=== PATIENT | female | born 1960 | race Caucasian/White ===

== ENCOUNTER → 2021-02-22 | Day surgery (SDC) | payer MEDICARE, MEDICAID ==
[~2021-02-22] MED LIST: BUPIVACAINE MPF 0.25% 10 ML VIAL. ONE; DEXAMETHASONE SOD PHOS 10 MG/ML VIAL. ONE; IOHEXOL 300 MG/ML 50 ML VIAL. ONE; LIDOCAINE 1% PF 30 ML VIAL. ONE
[2021-02-22 13:08] VITALS: BP 122/79
== END | disposition home or self-care (01) ==
LOC: SURG 11:37
PROVIDERS: ATTEND Anesthesiology
DX: M51.16 Intervertebral disc disorders with radiculopathy, lumbar region (principal); M48.061 Spinal stenosis, lumbar region without neurogenic claudication; M79.18 Myalgia, other site; J44.9 Chronic obstructive pulmonary disease, unspecified; K21.9 Gastro-esophageal reflux disease without esophagitis; Z86.73 Personal history of transient ischemic attack (TIA), and cerebral infarction without residual deficits
CPT/HCPCS: 64483; 64484; J1100; J3490; Q9967; 64480